=== PATIENT | female | born 1965 | race Caucasian/White ===

== ENCOUNTER 2017-01-24 21:16 | Emergency (ER) | payer MEDICAID ==
[2017-01-24 21:20] VITALS: BP 130/83; PULSE 84; TEMP 97.9; O2SAT 98
[2017-01-24] MEDS ORDERED: Lidocaine 2% Inj (20ml) INFIL ONE (21:48)
[2017-01-24] MEDS ORDERED: Lidocaine 2% Inj (20ml) ONE (21:59)
[2017-01-24] MEDS ORDERED: Bacitracin 500 Units/gm Oint Foilpak UD ONE (22:32)
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
[2017-01-24 23:29] VITALS: RESP 20
== END 2017-01-24 23:28 | disposition home or self-care (01) ==
LOC: C.ER 21:16
DX: S09.90XA Unspecified injury of head, initial encounter (principal); S01.111A Laceration without foreign body of right eyelid and periocular area, initial encounter; Y04.0XXA Assault by unarmed brawl or fight, initial encounter